=== PATIENT | male | born 1980 | race Caucasian/White ===

== ENCOUNTER 2017-05-17 21:50 | Inpatient (IN) | payer BC, OTHER ==
[~2017-05-17] VITALS: Ht 177.8 cm; Wt 70.3 kg
[2017-05-17] MEDS ORDERED: DIAZEPAM 10 MG TABLET PO PRN ×2 (23:15)
[2017-05-17] MEDS ORDERED: MIRALAX 17 GM POWD.PACK PO PRN (23:15)
[2017-05-17] MEDS ORDERED: ONDANSETRON 4 MG/2 ML VIAL IM PRN (23:15)
[2017-05-17] MEDS ORDERED: LORAZEPAM 2 MG/1 ML VIAL IM PRN (23:15)
[2017-05-17] MEDS ORDERED: LOPERAMIDE HCL 2 MG CAPSULE PO PRN ×2 (23:15)
[2017-05-17] MEDS ORDERED: BUPRENORPHINE HCL 2 MG TAB.SUBL SL PRN (23:15)
[2017-05-17] MEDS ORDERED: DIAZEPAM 5 MG TABLET PO PRN (23:15)
[2017-05-17] MEDS ORDERED: MAGNESIUM HYDROXIDE 30 ML LIQUID UDC PO PRN (23:15)
[2017-05-17] MEDS ORDERED: IBUPROFEN 600 MG TABLET PO PRN (23:15)
[2017-05-17] MEDS ORDERED: MAG HYDROX/AL HYDROX/SIMETH 30 ML LIQUID UDC PO PRN (23:15)
[2017-05-18] MEDS ORDERED: DIAZEPAM 10 MG TABLET PO ONE (00:25)
[2017-05-18] MEDS ORDERED: [UNRECOGNIZED DRUG - CODE] PO (00:28)
[2017-05-18] MEDS ORDERED: DOXY100T2 PO (00:28)
[2017-05-18] MEDS ORDERED: PROP20TA7 PO (00:28)
[2017-05-18] MEDS ORDERED: LEVE500T20 PO (00:28)
[2017-05-18] MEDS ORDERED: CLON1TAB4 PO (00:28)
[2017-05-18 00:43] LABS: BASOPHILS # (AUTO) 0.1 K/uL (0.0-8.0); BASOPHILS % (AUTO) 0.8 % (0.0-2.0); EOSINOPHILS # (AUTO) 0.1 K/uL (0.0-0.7); EOSINOPHILS % (AUTO) 1.2 % (0.0-7.0); HEMATOCRIT 41.1 % (36.7-47.1); HEMOGLOBIN 13.9 g/dL (12.5-16.3); LYMPHOCYTES # (AUTO) 3.5 K/uL (20.0-40.0); LYMPHOCYTES % (AUTO) 34.6 % (20.5-51.5); MEAN CORPUSCULAR HEMOGLOBIN 28.2 uug (23.8-33.4); MEAN CORPUSCULAR HGB CONC 34 g/dL (32.5-36.3); MEAN CORPUSCULAR VOLUME 83.1 fL (73.0-96.2); MONOCYTES # (AUTO) 0.5 K/uL (2.0-10.0); MONOCYTES % (AUTO) 4.8 % (0.0-11.0); NEUTROPHILS # (AUTO) 5.9 K/uL (1.8-8.9); NEUTROPHILS % (AUTO) 58.6 % (38.5-71.5); PLATELET COUNT (AUTO) 558 K/uL (152-348); RED BLOOD CELL COUNT(AUTO) 4.94 MIL/uL (4.06-5.63); WHITE BLOOD COUNT (AUTO) 10.1 K/uL (3.6-10.2)
[2017-05-18 00:57] LABS: *AMPHETAMINE, URINE POSITIVE (NEGATIVE); *BARBITURATE, URINE POSITIVE (NEGATIVE); *CANNABINOID, URINE POSITIVE (NEGATIVE); *COCCAINE, URINE NEGATIVE (NEGATIVE); *OPIATE, URINE POSITIVE (NEGATIVE); *PHENCYCLIDINE SCREEN,URINE NEGATIVE (NEGATIVE)
[2017-05-18 00:58] LABS: ETHANOL < 3 MG/DL (0-0)
[2017-05-18 01:00] LABS: ALANINE AMINOTRANSFERASE 37 U/L (16-63); ALKALINE PHOSPHATASE 74 U/L (50-136); ASPARTATE AMINOTRANSFERASE 20 U/L (15-37); BILIRUBIN,TOTAL 0.4 mg/dL (0.2-1.0); CARBON DIOXIDE 24 mmol/L (21-32); CHLORIDE 100 mmol/L (98-107); CREATININE 1.1 mg/dL (0.6-1.3); GLUCOSE 94 mg/dL (74-106); POTASSIUM 3.7 mmol/L (3.5-5.1); TOTAL PROTEIN, SERUM 9.2 g/dL (6.4-8.2); UREA NITROGEN, BLOOD 12 mg/dL (7-18)
[2017-05-18] MEDS: diphenhydrAMINE 50 MG CAPSULE PO PRN (01:11)
[2017-05-18] MEDS: CLONIDINE HCL 0.1 MG TABLET PO PRN ×2 (01:11→16:45)
[2017-05-18] MEDS: METHOCARBAMOL 750 MG TABLET PO PRN ×2 (01:11→17:33)
[2017-05-18] MEDS ORDERED: SIME80TA15 PO (01:17)
[2017-05-18] MEDS ORDERED: DIAZEPAM 10 MG TABLET ONE (01:25)
[2017-05-18] MEDS ORDERED: diphenhydrAMINE 50 MG CAPSULE ONE (01:26)
[2017-05-18] MEDS ORDERED: METHOCARBAMOL 750 MG TABLET ONE (01:26)
[2017-05-18] MEDS ORDERED: CLONIDINE HCL 0.1 MG TABLET ONE (01:26)
[2017-05-18 04:00] VITALS: BP 123/78
[2017-05-18 08:00] VITALS: BP 115/68
[2017-05-18] MEDS ORDERED: TUBERCULIN,PURIF.PROT.DERIV. 5 TU/0.1 ML TEST ID ONE (09:00)
[2017-05-18] MEDS: FOLIC ACID 1 MG TABLET PO SCH (09:20)
[2017-05-18] MEDS: THIAMINE HCL 100 MG TABLET PO SCH (09:21)
[2017-05-18] MEDS: MULTIVITAMINS,THERAPEUTIC TABLET PO SCH (09:21)
[2017-05-18] MEDS: DIAZEPAM 10 MG TABLET PO SCH ×4 (09:21→20:23)
[2017-05-18] MEDS: BUPRENORPHINE HCL 2 MG TAB.SUBL SL SCH ×4 (09:21→20:23)
[2017-05-18 12:00] VITALS: BP 125/78
[2017-05-18] MEDS: PREGABALIN 100 MG CAPSULE PO SCH ×2 (15:39→20:23)
[2017-05-18 16:00] VITALS: BP 109/66
[2017-05-18 20:00] VITALS: BP 113/64
[2017-05-18] MEDS: LEVETIRACETAM 500 MG TABLET PO SCH (20:23)
[2017-05-18] MEDS ORDERED: GABAPENTIN 300 MG CAPSULE PO SCH (21:00)
[2017-05-18] MEDS: KETOROLAC TROMETHAMINE 30 MG INJ IM PRN (21:18)
[2017-05-19] VITALS: BP 100/59
[2017-05-19 04:00] VITALS: BP 96/58
[2017-05-19 08:00] VITALS: BP 96/61
[2017-05-19 08:06] LABS: HEPATITIS B SURFACE AG Negative (Negative)
[2017-05-19] MEDS: LEVETIRACETAM 500 MG TABLET PO SCH ×2 (08:21→20:11)
[2017-05-19] MEDS: PREGABALIN 100 MG CAPSULE PO SCH ×2 (08:22→14:04)
[2017-05-19] MEDS: THIAMINE HCL 100 MG TABLET PO SCH (08:22)
[2017-05-19] MEDS: METHOCARBAMOL 750 MG TABLET PO PRN ×2 (08:22→21:45)
[2017-05-19] MEDS: DIAZEPAM 10 MG TABLET PO SCH ×3 (08:23→20:12)
[2017-05-19] MEDS: BUPRENORPHINE HCL 2 MG TAB.SUBL SL SCH ×3 (08:23→20:11)
[2017-05-19] MEDS: FOLIC ACID 1 MG TABLET PO SCH (08:23)
[2017-05-19] MEDS: MULTIVITAMINS,THERAPEUTIC TABLET PO SCH (08:23)
[2017-05-19] MEDS: DICYCLOMINE HCL 20 MG TABLET PO PRN ×2 (08:29→18:41)
[2017-05-19] MEDS: KETOROLAC TROMETHAMINE 30 MG INJ IM PRN ×2 (09:13→18:38)
[2017-05-19] MEDS ORDERED: BUPRENORPHINE HCL 2 MG TAB.SUBL SL ONE (11:30)
[2017-05-19] MEDS: ACETAMINOPHEN 325 MG TABLET PO PRN (11:39)
[2017-05-19 12:00] VITALS: BP 106/62
[2017-05-19] MEDS: BACLOFEN 10 MG TABLET PO SCH ×2 (14:05→20:11)
[2017-05-19] MEDS ORDERED: NAPROXEN 500 MG TABLET PO SCH (15:00)
[2017-05-19 16:00] VITALS: BP 102/56
[2017-05-19 20:00] VITALS: BP 104/64
[2017-05-19] MEDS: NAPROXEN 500 MG TABLET PO SCH (20:11)
[2017-05-19] MEDS: CLONIDINE HCL 0.1 MG TABLET PO SCH (20:12)
[2017-05-19] MEDS ORDERED: PREGABALIN 50 MG CAPSULE PO SCH (21:00)
[2017-05-19] MEDS: diphenhydrAMINE 50 MG CAPSULE PO PRN (21:45)
[2017-05-20] VITALS: BP 93/49
[2017-05-20] MEDS: PREGABALIN 100 MG CAPSULE PO SCH (08:54)
[2017-05-20] MEDS: DIAZEPAM 5 MG TABLET PO SCH ×2 (08:54→13:02)
[2017-05-20] MEDS: BACLOFEN 10 MG TABLET PO SCH (08:54)
[2017-05-20] MEDS: FOLIC ACID 1 MG TABLET PO SCH (08:54)
[2017-05-20] MEDS: THIAMINE HCL 100 MG TABLET PO SCH (08:54)
[2017-05-20] MEDS: NAPROXEN 500 MG TABLET PO SCH ×2 (08:54→21:00)
[2017-05-20] MEDS: LEVETIRACETAM 500 MG TABLET PO SCH ×2 (08:54→20:36)
[2017-05-20 08:55] VITALS: BP 94/61
[2017-05-20] MEDS: CLONIDINE HCL 0.1 MG TABLET PO SCH ×2 (08:55→20:35)
[2017-05-20] MEDS: MULTIVITAMINS,THERAPEUTIC TABLET PO SCH (08:55)
[2017-05-20] MEDS: FAMOTIDINE 20 MG TABLET PO SCH (08:55)
[2017-05-20] MEDS ORDERED: BUPRENORPHINE HCL 2 MG TAB.SUBL SL SCH (09:00)
[2017-05-20] MEDS: ACETAMINOPHEN 325 MG TABLET PO PRN (11:20)
[2017-05-20] MEDS: METHOCARBAMOL 750 MG TABLET PO PRN ×2 (11:20→22:21)
[2017-05-20 12:37] VITALS: BP 105/60
[2017-05-20] MEDS: KETOROLAC TROMETHAMINE 30 MG INJ IM PRN ×2 (13:03→20:39)
[2017-05-20] MEDS: PREGABALIN 50 MG CAPSULE PO SCH ×2 (14:33→20:35)
[2017-05-20] MEDS: BACLOFEN 20 MG TABLET PO SCH ×2 (14:33→20:36)
[2017-05-20] MEDS: ACETAMINOPHEN 325 MG TABLET PO SCH ×2 (14:33→20:36)
[2017-05-20] MEDS: BUPRENORPHINE HCL 2 MG TAB.SUBL SL SCH ×2 (14:33→20:53)
[2017-05-20] MEDS: PAROXETINE HCL 20 MG TABLET PO SCH (14:34)
[2017-05-20 16:48] VITALS: BP 112/68
[2017-05-20] MEDS ORDERED: DIAZEPAM 5 MG TABLET PO SCH (17:00)
[2017-05-20 20:00] VITALS: BP 120/68
[2017-05-20] MEDS ORDERED: DIAZEPAM 10 MG TABLET PO SCH (21:00)
[2017-05-20] MEDS: HYDROXYZINE PAMOATE 25 MG CAPSULE PO PRN (22:21)
[2017-05-21] VITALS: BP 104/58
[2017-05-21 08:24] VITALS: BP 105/68
[2017-05-21] MEDS: NAPROXEN 500 MG TABLET PO SCH ×2 (09:00→20:46)
[2017-05-21] MEDS: CLONIDINE HCL 0.1 MG TABLET PO SCH ×3 (09:45→20:46)
[2017-05-21] MEDS: DIAZEPAM 5 MG TABLET PO SCH ×3 (09:45→20:37)
[2017-05-21] MEDS: BUPRENORPHINE HCL 2 MG TAB.SUBL SL SCH ×3 (09:45→20:37)
[2017-05-21] MEDS: BACLOFEN 20 MG TABLET PO SCH ×4 (09:45→20:36)
[2017-05-21] MEDS: MULTIVITAMINS,THERAPEUTIC TABLET PO SCH (09:45)
[2017-05-21] MEDS: LEVETIRACETAM 500 MG TABLET PO SCH ×2 (09:45→20:37)
[2017-05-21] MEDS: ACETAMINOPHEN 325 MG TABLET PO SCH ×3 (09:45→20:36)
[2017-05-21] MEDS: KETOROLAC TROMETHAMINE 30 MG INJ IM PRN ×2 (09:46→20:39)
[2017-05-21] MEDS: THIAMINE HCL 100 MG TABLET PO SCH (09:46)
[2017-05-21] MEDS: FAMOTIDINE 20 MG TABLET PO SCH (09:46)
[2017-05-21] MEDS: FOLIC ACID 1 MG TABLET PO SCH (09:46)
[2017-05-21] MEDS: PAROXETINE HCL 20 MG TABLET PO SCH (09:46)
[2017-05-21] MEDS: PREGABALIN 50 MG CAPSULE PO SCH ×3 (10:13→20:36)
[2017-05-21 12:55] VITALS: BP 101/62
[2017-05-21] MEDS: DICYCLOMINE HCL 20 MG TABLET PO SCH ×2 (14:00→20:37)
[2017-05-21 17:32] VITALS: BP 104/60
[2017-05-21 20:00] VITALS: BP 95/61
[2017-05-21] MEDS: HYDROXYZINE PAMOATE 25 MG CAPSULE PO PRN (23:32)
[2017-05-21] MEDS: diphenhydrAMINE 50 MG CAPSULE PO PRN (23:32)
[2017-05-21] MEDS: METHOCARBAMOL 750 MG TABLET PO PRN (23:32)
[2017-05-21] MEDS: ONDANSETRON ODT 4 MG TAB.RAPDIS SL PRN (23:33)
[2017-05-22 08:06] VITALS: BP 108/52
[2017-05-22] MEDS: NAPROXEN 500 MG TABLET PO SCH ×2 (08:32→21:00)
[2017-05-22] MEDS: DICYCLOMINE HCL 20 MG TABLET PO SCH ×3 (08:59→21:04)
[2017-05-22] MEDS ORDERED: BUPRENORPHINE HCL 2 MG TAB.SUBL SL SCH (09:00)
[2017-05-22] MEDS ORDERED: DIAZEPAM 5 MG TABLET PO SCH (09:00)
[2017-05-22] MEDS: FAMOTIDINE 20 MG TABLET PO SCH (09:00)
[2017-05-22] MEDS: PREGABALIN 50 MG CAPSULE PO SCH ×3 (09:00→21:05)
[2017-05-22] MEDS: FOLIC ACID 1 MG TABLET PO SCH (09:00)
[2017-05-22] MEDS: PAROXETINE HCL 20 MG TABLET PO SCH (09:00)
[2017-05-22] MEDS: CLONIDINE HCL 0.1 MG TABLET PO SCH ×3 (09:00→21:03)
[2017-05-22] MEDS: LEVETIRACETAM 500 MG TABLET PO SCH ×2 (09:00→21:03)
[2017-05-22] MEDS: BACLOFEN 20 MG TABLET PO SCH ×4 (09:00→21:04)
[2017-05-22] MEDS: MULTIVITAMINS,THERAPEUTIC TABLET PO SCH (09:01)
[2017-05-22] MEDS: THIAMINE HCL 100 MG TABLET PO SCH (09:01)
[2017-05-22] MEDS: ACETAMINOPHEN 325 MG TABLET PO SCH (09:01)
[2017-05-22] MEDS: KETOROLAC TROMETHAMINE 30 MG INJ IM PRN ×2 (09:04→21:06)
[2017-05-22 12:19] VITALS: BP 117/66
[2017-05-22] MEDS: ONDANSETRON ODT 4 MG TAB.RAPDIS SL PRN (13:04)
[2017-05-22] MEDS: HYDROXYZINE PAMOATE 25 MG CAPSULE PO PRN (13:15)
[2017-05-22] MEDS: BUPRENORPHINE HCL 2 MG TAB.SUBL SL SCH ×2 (14:05→21:05)
[2017-05-22] MEDS: ACETAMINOPHEN ES 500 MG TABLET PO SCH ×2 (14:05→21:04)
[2017-05-22] MEDS ORDERED: DIPH50CA37 PO (14:16)
[2017-05-22] MEDS ORDERED: DICY20TA28 PO (14:16)
[2017-05-22] MEDS ORDERED: LEVE500T9 PO (14:16)
[2017-05-22] MEDS ORDERED: BACL20TA PO (14:16)
[2017-05-22] MEDS ORDERED: CLON0.1T14 PO (14:16)
[2017-05-22] MEDS ORDERED: PARO20TA7 PO (14:16)
[2017-05-22] MEDS ORDERED: NAPR500T4 PO (14:16)
[2017-05-22] MEDS ORDERED: PREG50CA PO (14:16)
[2017-05-22] MEDS ORDERED: HYDR-3895 PO (14:16)
[2017-05-22] MEDS ORDERED: ACET-2605 PO (14:16)
[2017-05-22] MEDS ORDERED: FAMO20TA8 PO (14:16)
[2017-05-22 16:45] VITALS: BP 106/49
[2017-05-22 20:00] VITALS: BP 103/60
[2017-05-22] MEDS ORDERED: DIAZEPAM 10 MG TABLET PO SCH (21:00)
[2017-05-22] MEDS ORDERED: DIAZEPAM 10 MG TABLET ONE (21:11)
[2017-05-23] MEDS: METHOCARBAMOL 750 MG TABLET PO PRN ×2 (01:02→19:45)
[2017-05-23 08:00] VITALS: BP 120/74
[2017-05-23] MEDS: BACLOFEN 20 MG TABLET PO SCH ×4 (08:46→21:06)
[2017-05-23] MEDS: MULTIVITAMINS,THERAPEUTIC TABLET PO SCH (08:46)
[2017-05-23] MEDS: DICYCLOMINE HCL 20 MG TABLET PO SCH ×3 (08:46→21:05)
[2017-05-23] MEDS: ACETAMINOPHEN ES 500 MG TABLET PO SCH ×3 (08:46→21:06)
[2017-05-23] MEDS: PAROXETINE HCL 20 MG TABLET PO SCH (08:46)
[2017-05-23] MEDS: LEVETIRACETAM 500 MG TABLET PO SCH ×2 (08:46→21:06)
[2017-05-23] MEDS: FOLIC ACID 1 MG TABLET PO SCH (08:46)
[2017-05-23] MEDS: FAMOTIDINE 20 MG TABLET PO SCH (08:46)
[2017-05-23] MEDS: THIAMINE HCL 100 MG TABLET PO SCH (08:46)
[2017-05-23] MEDS: CLONIDINE HCL 0.1 MG TABLET PO SCH ×3 (08:47→21:06)
[2017-05-23] MEDS: NAPROXEN 500 MG TABLET PO SCH ×2 (08:47→21:00)
[2017-05-23] MEDS ORDERED: DIAZEPAM 5 MG TABLET PO SCH (09:00)
[2017-05-23] MEDS ORDERED: BUPRENORPHINE HCL 2 MG TAB.SUBL SL SCH (09:00)
[2017-05-23] MEDS: KETOROLAC TROMETHAMINE 30 MG INJ IM PRN ×2 (09:09→18:16)
[2017-05-23] MEDS: PREGABALIN 50 MG CAPSULE PO SCH ×3 (10:24→21:06)
[2017-05-23 12:00] VITALS: BP 107/60
[2017-05-23] MEDS ORDERED: OXCARBAZEPINE 150 MG TABLET PO ONE (12:15)
[2017-05-23 16:00] VITALS: BP 102/55
[2017-05-23] MEDS ORDERED: OXCA150T5 PO (16:47)
[2017-05-23 20:00] VITALS: BP 127/74
[2017-05-23] MEDS: OXCARBAZEPINE 150 MG TABLET PO SCH (21:06)
[2017-05-23] MEDS: ONDANSETRON ODT 4 MG TAB.RAPDIS SL PRN (21:15)
[2017-05-23] MEDS: HYDROXYZINE PAMOATE 25 MG CAPSULE PO PRN (21:19)
[2017-05-24] VITALS: BP 124/74
[2017-05-24] MEDS: KETOROLAC TROMETHAMINE 30 MG INJ IM PRN ×3 (00:20→15:09)
[2017-05-24 08:00] VITALS: BP 127/79
[2017-05-24] MEDS: BACLOFEN 20 MG TABLET PO SCH ×3 (08:07→16:09)
[2017-05-24] MEDS: FAMOTIDINE 20 MG TABLET PO SCH (08:07)
[2017-05-24] MEDS: ACETAMINOPHEN ES 500 MG TABLET PO SCH ×2 (08:07→14:20)
[2017-05-24] MEDS: LEVETIRACETAM 500 MG TABLET PO SCH (08:08)
[2017-05-24] MEDS: DICYCLOMINE HCL 20 MG TABLET PO SCH ×2 (08:08→14:20)
[2017-05-24] MEDS: FOLIC ACID 1 MG TABLET PO SCH (08:08)
[2017-05-24] MEDS: CLONIDINE HCL 0.1 MG TABLET PO SCH ×2 (08:08→14:19)
[2017-05-24] MEDS: PAROXETINE HCL 20 MG TABLET PO SCH (08:08)
[2017-05-24] MEDS: THIAMINE HCL 100 MG TABLET PO SCH (08:08)
[2017-05-24] MEDS: OXCARBAZEPINE 150 MG TABLET PO SCH (08:08)
[2017-05-24] MEDS: PREGABALIN 50 MG CAPSULE PO SCH ×2 (08:08→14:19)
[2017-05-24] MEDS: MULTIVITAMINS,THERAPEUTIC TABLET PO SCH (08:09)
[2017-05-24] MEDS: NAPROXEN 500 MG TABLET PO SCH (09:00)
[2017-05-24 13:00] VITALS: BP 116/65
[2017-05-24] MEDS: METHOCARBAMOL 750 MG TABLET PO PRN (13:45)
[2017-05-24] MEDS ORDERED: OXCARBAZEPINE 300 MG TABLET PO ONE (14:15)
[2017-05-24 16:00] VITALS: BP 123/74
[2017-05-24] MEDS: HYDROXYZINE PAMOATE 25 MG CAPSULE PO PRN (16:09)
== END 2017-05-24 19:05 | disposition other institution (70) | DRG 895 ==
LOC: SRC 23:02
PROVIDERS: ADMIT Internal Medicine; ATTEND Internal Medicine
PROC: HZ2ZZZZ Detoxification Services for Substance Abuse Treatment (ICD-10-PCS; principal; 2017-05-17)
PROC: HZ31ZZZ Individual Counseling for Substance Abuse Treatment, Behavioral (ICD-10-PCS; 2017-05-21)
PROC: HZ41ZZZ Group Counseling for Substance Abuse Treatment, Behavioral (ICD-10-PCS; 2017-05-22)
DX: F10.232 Alcohol dependence with withdrawal with perceptual disturbance (principal); G40.919 Epilepsy, unspecified, intractable, without status epilepticus; F11.23 Opioid dependence with withdrawal; F13.232 Sedative, hypnotic or anxiolytic dependence with withdrawal with perceptual disturbance; Y90.0 Blood alcohol level of less than 20 mg/100 ml; F17.210 Nicotine dependence, cigarettes, uncomplicated; Z81.1 Family history of alcohol abuse and dependence; Z91.89 Other specified personal risk factors, not elsewhere classified; G89.29 Other chronic pain; Z79.899 Other long term (current) drug therapy; F41.9 Anxiety disorder, unspecified; F15.10 Other stimulant abuse, uncomplicated; F12.90 Cannabis use, unspecified, uncomplicated; F32.9 Major depressive disorder, single episode, unspecified; M54.5 Low back pain; Z98.1 Arthrodesis status
CPT/HCPCS: 36415; 70030-TC; 80307; 80324; 80345; 80349; 80361; 83735; 85025; 86592; 86705; 86803; 87340; 87806; G0480; J1885; J2405; Q0162; Q0163